=== PATIENT | female | born 2000 | race Caucasian/White ===

== ENCOUNTER 2020-10-18 21:36 | Emergency (ER) | payer OTHER ==
[2020-10-18 22:29] VITALS: BP 105/72; PULSE 82; TEMP 98.7; BMI 22.6
[2020-10-19] MEDS ORDERED: ACETAMINOPHEN 1000 MG/100 ML VIAL (NON FORMULARY) IVPB ONE (00:24)
[2020-10-19] MEDS ORDERED: SODIUM CHLORIDE 1,000 ML IV STA (00:24)
[2020-10-19 01:03] LABS: HCG,QUALITATIVE URINE Negative
[2020-10-19 01:06] LABS: URINE APPEARANCE CLEAR; URINE BILIRUBIN NEGATIVE (NEGATIVE); URINE COLOR YELLOW; URINE GLUCOSE (UA) NEGATIVE (NEGATIVE); URINE KETONE NEGATIVE (NEGATIVE); URINE LEUK ESTERASE NEGATIVE (NEGATIVE); URINE NITRITE NEGATIVE (NEGATIVE); URINE PROTEIN NEGATIVE (NEGATIVE); URINE UROBILINOGEN 0.2 mg/dL (0.2-1.0)
[2020-10-19] MEDS ORDERED: ACETAMINOPHEN INJECTION 100 ML IVPB ONE (01:12)
[2020-10-19 01:19] LABS: BASO % 0.4 % (0-2.0); EOS % 0.9 % (0-4.5); HEMATOCRIT 37.8 % (32.4-45.2); HEMOGLOBIN 12.5 GM/dL (10.7-15.3); LYMPH % 15.1 % (8-40); MCHC 33.1 g/dl (32.0-36.0); MEAN CELL VOLUME 87.4 fl (80-96); MEAN PLT VOLUME 9.3 fl (7.5-11.1); MONO % 7.5 % (3.8-10.2); NEUT % 76.1 % (42.8-82.8); PLATELET COUNT 317 K/MM3 (134-434); RBC 4.33 M/mm3 (3.60-5.2); RDW 16.1 % (11.6-15.6); WHITE BLOOD COUNT 10.4 K/mm3 (4.0-10.0)
[2020-10-19] MEDS ORDERED: KETOROLAC TROMETHAMINE 30 MG/1 ML VIAL IVPUSH ONE (01:23)
[2020-10-19] MEDS ORDERED: TAMSULOSIN HCL 0.4 MG CAP PO ONE (01:23)
[2020-10-19] MEDS ORDERED: TAMSULOSIN HCL 0.4 MG CAP ONE (01:29)
[2020-10-19] MEDS ORDERED: KETOROLAC TROMETHAMINE 30 MG/1 ML VIAL ONE (01:29)
[2020-10-19 01:38] LABS: ALBUMIN 4.2 g/dl (3.4-5.0); BLOOD UREA NITROGEN 16.5 mg/dL (7-18); CALCIUM 8.9 mg/dL (8.5-10.1)
[2020-10-19 01:42] LABS: CREATININE 0.8 mg/dL (0.55-1.3)
[2020-10-19 01:43] LABS: BILIRUBIN,TOTAL 0.2 mg/dL (0.2-1); TOT PROT 8.3 g/dl (6.4-8.2)
== END 2020-10-19 03:10 | disposition home or self-care (01) ==
LOC: JER 21:36
PROC: 3E0333Z Introduction of Anti-inflammatory into Peripheral Vein, Percutaneous Approach (ICD-10-PCS; principal; 2020-10-18)
PROC: 3E0333Z Introduction of Anti-inflammatory into Peripheral Vein, Percutaneous Approach (ICD-10-PCS; 2020-10-18)
PROC: 3E0337Z Introduction of Electrolytic and Water Balance Substance into Peripheral Vein, Percutaneous Approach (ICD-10-PCS; 2020-10-18)
DX: R10.32 Left lower quadrant pain (principal); N13.30 Unspecified hydronephrosis
CPT/HCPCS: 36415; 74176-TC; 76775-TC; 80053; 81003; 84703; 85025; 87086; 99285-25; J0131

== ENCOUNTER 2023-10-15 15:19 | Emergency (ER) | payer SELFPAY ==
[2023-10-15 15:27] VITALS: RESP 18; TEMP 97.8; BMI 24.1
[2023-10-15 16:44] LABS: BASO % 0.4 % (0-2.0); EOS % 0.8 % (0-4.5); HEMATOCRIT 38.9 % (32.4-45.2); LYMPH % 13.4 % (8-40); MCH 29.2 pg (25.7-33.7); MCHC 33.3 g/dl (32.0-36.0); MEAN CELL VOLUME 87.6 fl (80-96); MEAN PLT VOLUME 8.6 fl (7.5-11.1); MONO % 2.6 % (3.8-10.2); NEUT % 82.8 % (42.8-82.8); PLATELET COUNT 317 10^3/uL (134-434); RBC 4.44 M/mm3 (3.60-5.2); RDW 14.7 % (11.6-15.6); WHITE BLOOD COUNT 9.5 K/mm3 (4.0-10.0)
[2023-10-15] MEDS ORDERED: ACETAMINOPHEN INJECTION 100 ML IVPB ONE (16:53)
[2023-10-15] MEDS ORDERED: ONDANSETRON 4 MG/2 ML VIAL ONE (16:53)
[2023-10-15] MEDS ORDERED: FAMOTIDINE 20 MG/50 ML IVPB 20 MG/50 ML MG IVPB ONE (16:53)
[2023-10-15] MEDS: ACETAMINOPHEN 1000 MG/100 ML BAG IVPB ONE (17:03)
[2023-10-15] MEDS: FAMOTIDINE 20 MG/50 ML IVPB 20 MG/50 ML MG IVPB ONE (17:03)
[2023-10-15] MEDS: ONDANSETRON 4 MG/2 ML VIAL IVPUSH ONE (17:03)
[2023-10-15] MEDS: SODIUM CHLORIDE 1,000 ML IV STA (17:03)
[2023-10-15 17:04] LABS: POTASSIUM 4.2 mmol/L (3.5-5.1)
[2023-10-15 17:06] LABS: ALBUMIN 3.7 g/dl (3.4-5.0); CALCIUM 9.4 mg/dL (8.5-10.1)
[2023-10-15 17:07] LABS: BLOOD UREA NITROGEN 14.3 mg/dL (7-18)
[2023-10-15 17:10] LABS: CREATININE 0.7 mg/dL (0.55-1.3)
[2023-10-15 17:11] LABS: BILIRUBIN,TOTAL 0.3 mg/dL (0.2-1); TOT PROT 7.9 g/dl (6.4-8.2)
[2023-10-15 18:21] LABS: PH,URINE 6.5 (5.0-8.0); URINE APPEARANCE CLEAR; URINE BILIRUBIN NEGATIVE (NEGATIVE); URINE COLOR YELLOW; URINE GLUCOSE (UA) NEGATIVE (NEGATIVE); URINE KETONE 2+ (NEGATIVE); URINE LEUK ESTERASE NEGATIVE (NEGATIVE); URINE NITRITE NEGATIVE (NEGATIVE); URINE PROTEIN NEGATIVE (NEGATIVE); URINE UROBILINOGEN 0.2 mg/dL (0.2-1.0)
[2023-10-15] MEDS ORDERED: KETOROLAC TROMETHAMINE 30 MG/1 ML VIAL ONE (20:23)
[2023-10-15] MEDS: KETOROLAC TROMETHAMINE 30 MG/1 ML VIAL IVPUSH ONE (20:28)
[2023-10-15] MEDS: LACTATED RINGERS SOLUTION 1,000 ML/1,000 ML INFUS.BAG IV ONE (20:28)
[2023-10-15 22:15] VITALS: BP 110/72; PULSE 67
== END 2023-10-15 22:15 | disposition home or self-care (01) ==
LOC: JER 15:19
PROC: 3E033GC Introduction of Other Therapeutic Substance into Peripheral Vein, Percutaneous Approach (ICD-10-PCS; principal; 2023-10-15)
PROC: 3E033GC Introduction of Other Therapeutic Substance into Peripheral Vein, Percutaneous Approach (ICD-10-PCS; 2023-10-15)
PROC: 3E033NZ Introduction of Analgesics, Hypnotics, Sedatives into Peripheral Vein, Percutaneous Approach (ICD-10-PCS; 2023-10-15)
PROC: 3E0333Z Introduction of Anti-inflammatory into Peripheral Vein, Percutaneous Approach (ICD-10-PCS; 2023-10-15)
PROC: 3E0337Z Introduction of Electrolytic and Water Balance Substance into Peripheral Vein, Percutaneous Approach (ICD-10-PCS; 2023-10-15)
DX: R10.13 Epigastric pain (principal); M54.6 Pain in thoracic spine; R11.2 Nausea with vomiting, unspecified; K29.70 Gastritis, unspecified, without bleeding; K57.90 Diverticulosis of intestine, part unspecified, without perforation or abscess without bleeding
CPT/HCPCS: 36415; 74177-TC; 80053; 81003; 84703; 85025; 87077; 87086; 99285-25; J0131; Q9967

== ENCOUNTER 2023-10-18 17:55 | Emergency (ER) | payer OTHER ==
[2023-10-18 18:01] VITALS: RESP 18; BMI 24.0
[2023-10-18] MEDS ORDERED: diphenhydrAMINE HCL 25 MG CAPSULE (FP) PO ONE (19:19)
[2023-10-18] MEDS ORDERED: MAG HYDROX/AL HYDROX/SIMETH 30 ML UNIT-DOSE CUP ONE (19:20)
[2023-10-18] MEDS: diphenhydrAMINE HCL 12.5 MG/5 ML UNIT-DOSE CUPS PO ONE (19:25)
[2023-10-18] MEDS: MAG HYDROX/AL HYDROX/SIMETH 30 ML UNIT-DOSE CUP PO ONE (19:25)
[2023-10-18] MEDS ORDERED: LIDOCAINE VISCOUS 2% ORAL/TOP 15 ML UNIT-DOSE CUP ONE (19:30)
[2023-10-18] MEDS: LIDOCAINE VISCOUS 2% ORAL/TOP 15 ML UNIT-DOSE CUP MM ONE (19:45)
[2023-10-18] MEDS ORDERED: PANTOPRAZOLE SODIUM 40 MG/100 ML BAG IVPB ONE (20:17)
[2023-10-18] MEDS ORDERED: ONDANSETRON 4 MG/2 ML VIAL ONE ×2 (20:17→23:17)
[2023-10-18] MEDS: SODIUM CHLORIDE 0.9% 500 ML INFUS.BAG IV ONE (20:32)
[2023-10-18] MEDS: ONDANSETRON 4 MG/2 ML VIAL IVPUSH ONE ×2 (20:32→23:28)
[2023-10-18] MEDS: PANTOPRAZOLE SODIUM 40 MG VIAL IVPUSH ONE (20:32)
[2023-10-18 21:57] LABS: BASO % 0.3 % (0-2.0); EOS % 0.3 % (0-4.5); HEMOGLOBIN 12.8 GM/dL (10.7-15.3); LYMPH % 15.7 % (8-40); MCH 28.8 pg (25.7-33.7); MCHC 32.8 g/dl (32.0-36.0); MEAN CELL VOLUME 87.6 fl (80-96); MEAN PLT VOLUME 8.3 fl (7.5-11.1); MONO % 4.5 % (3.8-10.2); NEUT % 79.2 % (42.8-82.8); PLATELET COUNT 325 10^3/uL (134-434); RBC 4.45 M/mm3 (3.60-5.2); RDW 14.5 % (11.6-15.6)
[2023-10-18 23:05] LABS: POTASSIUM 4.1 mmol/L (3.5-5.1)
[2023-10-18 23:07] LABS: ALBUMIN 3.4 g/dl (3.4-5.0); CALCIUM 8.9 mg/dL (8.5-10.1)
[2023-10-18 23:08] LABS: BLOOD UREA NITROGEN 9.3 mg/dL (7-18)
[2023-10-18 23:10] LABS: CREATININE 0.7 mg/dL (0.55-1.3)
[2023-10-18 23:12] LABS: BILIRUBIN,TOTAL 0.5 mg/dL (0.2-1); TOT PROT 7.2 g/dl (6.4-8.2)
[2023-10-18] MEDS ORDERED: ACETAMINOPHEN INJECTION 100 ML IVPB ONE (23:17)
[2023-10-18] MEDS: ACETAMINOPHEN 1000 MG/100 ML BAG IVPB ONE (23:28)
[2023-10-19 01:54] VITALS: BP 102/60; PULSE 73; TEMP 98.6
== END 2023-10-19 03:22 | disposition home or self-care (01) ==
LOC: JER 17:55
PROC: 3E030NZ Introduction of Analgesics, Hypnotics, Sedatives into Peripheral Vein, Open Approach (ICD-10-PCS; principal; 2023-10-18)
PROC: 3E030GC Introduction of Other Therapeutic Substance into Peripheral Vein, Open Approach (ICD-10-PCS; 2023-10-18)
PROC: 3E030GC Introduction of Other Therapeutic Substance into Peripheral Vein, Open Approach (ICD-10-PCS; 2023-10-18)
PROC: 3E030GC Introduction of Other Therapeutic Substance into Peripheral Vein, Open Approach (ICD-10-PCS; 2023-10-18)
DX: K80.20 Calculus of gallbladder without cholecystitis without obstruction (principal); N13.30 Unspecified hydronephrosis; R11.2 Nausea with vomiting, unspecified; R10.12 Left upper quadrant pain; R10.13 Epigastric pain
CPT/HCPCS: 36415; 76705-TC; 80053; 83690; 85025; 99284-25; J0131

== ENCOUNTER 2024-11-02 09:39 | Day surgery (SDC) | payer OTHER ==
[2024-11-02] MEDS ORDERED: FAMOTIDINE 20 MG/50 ML IVPB 20 MG/50 ML MG IVPB ONE (11:43)
[2024-11-02] MEDS ORDERED: ONDANSETRON 4 MG/2 ML VIAL ONE (11:43)
[2024-11-02] MEDS: ACETAMINOPHEN 1000 MG/100 ML BAG IVPB ONE (11:59)
[2024-11-02] MEDS: ONDANSETRON 4 MG/2 ML VIAL IVPUSH ONE (11:59)
[2024-11-02 12:16] LABS: INR 1.06 (0.83-1.09); PROTHROMBIN TIME (PATIENT) 11.6 SEC (9.7-13.0)
[2024-11-02 12:19] LABS: ACTIVATED PTT 32.7 SECONDS (25.2-36.5)
[2024-11-02 12:20] LABS: HCG,QUALITATIVE URINE Negative
[2024-11-02 12:23] LABS: PH,URINE >= 9.0 (5.0-8.0); URINE APPEARANCE CLEAR; URINE BILIRUBIN NEGATIVE (NEGATIVE); URINE COLOR YELLOW; URINE GLUCOSE (UA) NEGATIVE (NEGATIVE); URINE KETONE NEGATIVE (NEGATIVE); URINE LEUK ESTERASE NEGATIVE (NEGATIVE); URINE NITRITE NEGATIVE (NEGATIVE); URINE PROTEIN NEGATIVE (NEGATIVE); URINE UROBILINOGEN 0.2 mg/dL (0.2-1.0)
[2024-11-02 12:26] LABS: POTASSIUM 4.7 mmol/L (3.5-5.1)
[2024-11-02 12:28] LABS: CALCIUM 9.8 mg/dL (8.5-10.1)
[2024-11-02 12:29] LABS: BLOOD UREA NITROGEN 13.7 mg/dL (7-18); MAGNESIUM 2.1 mg/dL (1.8-2.4)
[2024-11-02 12:32] LABS: CREATININE 0.7 mg/dL (0.55-1.3)
[2024-11-02 12:33] LABS: BILIRUBIN,TOTAL 0.4 mg/dL (0.2-1); TOT PROT 8.2 g/dl (6.4-8.2)
[2024-11-02] MEDS: LACTATED RINGERS SOLUTION 1000 ML INFUS.BAG IV ONE (12:48)
[2024-11-02] MEDS: FAMOTIDINE 20 MG/50 ML IVPB 20 MG/50 ML MG IVPB ONE (12:56)
[2024-11-02 13:18] LABS: HCV DIAGNOSTIC IN-HOUSE W/RFLX NON-REACTIVE (NONREACTIVE)
[2024-11-02 13:19] LABS: HIV INTERPRETATION NEGATIVE (NEGATIVE)
[2024-11-02 13:37] LABS: ABSOLUTE IMMATURE GRANULOCYTES 0.01 x10^3/uL (0.0-0.031); BASOPHILS # 0.06 x10^3/uL (0.01-0.08); EOSINOPHIL % 4.8 % (0.7-5.8); EOSINOPHILS # 0.33 x10^3/uL (0.04-0.36); HEMATOCRIT 39.1 % (34.1-44.9); HEMOGLOBIN 12.9 g/dL (11.2-15.7); MEAN CELL VOLUME 89.7 fl (79.4-94.8); MEAN PLT VOLUME 11.5 fl (9.4-12.3); MONOCYTE # 0.58 x10^3/uL (0.24-0.86); MONOCYTE % 8.5 % (4.7-12.5); PLATELET COUNT 317 x10^3/uL (182-369); RDW 13.2 % (12.1-16.5)
[2024-11-02] MEDS ORDERED: ONDANSETRON 4 MG/2 ML VIAL IVPUSH PRN (14:10)
[2024-11-02] MEDS ORDERED: ALBUTEROL SO4 HFA INHALER IH PRN (14:25)
[2024-11-02] MEDS ORDERED: MORPHINE SULFATE 2 MG/ML SYRINGE ONE ×2 (14:28→16:06)
[2024-11-02] MEDS ORDERED: PIPERACILLIN/TAZOB 4.5 GM 4.5 GM/100 ML BAG IVPB ONE (14:28)
[2024-11-02] MEDS: morphine CARPU-JECT 2 MG/1 ML DISP.SYRIN IVPUSH ONE (14:34)
[2024-11-02] MEDS: PIPERACILLIN/TAZOB 4.5 GM 4.5 GM in DEXTROSE 5%-WATER 100 ML IVPB ONE (14:34)
[2024-11-02] MEDS: LACTATED RINGERS SOLUTION 1,000 ML/1,000 ML INFUS.BAG IV SCH (14:35)
[2024-11-02 18:28] VITALS: BMI 22.6
[2024-11-02] MEDS: ACETAMINOPHEN 1000 MG/100 ML BAG IVPB PRN (19:27)
[2024-11-03 08:54] LABS: HEMATOCRIT 35.4 % (34.1-44.9); HEMOGLOBIN 11.2 g/dL (11.2-15.7); MCHC 31.6 g/dl (32.2-35.5); MEAN CELL VOLUME 91.7 fl (79.4-94.8); MEAN PLT VOLUME 10.4 fl (9.4-12.3); PLATELET COUNT 269 x10^3/uL (182-369); RDW 13.3 % (12.1-16.5)
[2024-11-03 09:26] LABS: BLOOD UREA NITROGEN 6.8 mg/dL (7-18); CALCIUM 8.9 mg/dL (8.5-10.1); MAGNESIUM 1.9 mg/dL (1.8-2.4)
[2024-11-03 09:30] LABS: BILIRUBIN,TOTAL 0.3 mg/dL (0.2-1); CREATININE 0.7 mg/dL (0.55-1.3); PHOSPHOROUS 4.2 mg/dL (2.5-4.9)
[2024-11-03 09:43] LABS: ALBUMIN 3.1 g/dl (3.4-5.0); TOT PROT 5.9 g/dl (6.4-8.2)
[2024-11-03] MEDS ORDERED: PROMETHAZINE HCL 25 MG/1 ML VIAL IVPB PRN ×2 (10:18→12:57)
[2024-11-03] MEDS ORDERED: oxyCODONE HCL 5 MG TABLET PO PRN ×3 (10:18→12:57)
[2024-11-03] MEDS ORDERED: LACTATED RINGERS SOLUTION 1,000 ML IV SCH (10:30)
[2024-11-03] MEDS ORDERED: ROCURONIUM BROMIDE 50 MG/5 ML SYRINGE ONE (10:36)
[2024-11-03] MEDS ORDERED: DEXAMETHASONE SOD PHOSPHATE 4 MG/1 ML VIAL ONE (10:36)
[2024-11-03] MEDS ORDERED: SEVOFLURANE 250 ML BTL ONE (10:36)
[2024-11-03] MEDS ORDERED: ONDANSETRON 4 MG/2 ML VIAL ONE (10:36)
[2024-11-03] MEDS ORDERED: MIDAZOLAM HCL 2 MG/2 ML SINGLE DOSE VIAL ONE (10:36)
[2024-11-03] MEDS ORDERED: PROPOFOL 20 ML ONE (10:36)
[2024-11-03] MEDS ORDERED: BUPIVACAINE HCL/PF 0.25% (2.5MG/ML) 10 ML VIAL ONE (10:38)
[2024-11-03] MEDS ORDERED: LIDOCAINE HCL/PF 2% SDV 5ML VIAL ONE (10:42)
[2024-11-03] MEDS ORDERED: cefOXitin SODIUM 2 GM VIAL (RESTRICTED TO ID) IVPB ONE (11:06)
[2024-11-03] MEDS: cefoTEtan DISODIUM 2 GM VIAL (RESTRICTED TO ID) IVPB ONE (11:18)
[2024-11-03] MEDS ORDERED: NEOSTIGMINE METHYLSULFATE 0.5 MG/1 ML - 10 ML MDV ONE (12:11)
[2024-11-03] MEDS ORDERED: KETOROLAC TROMETHAMINE 30 MG/1 ML VIAL ONE (12:11)
[2024-11-03] MEDS ORDERED: GLYCOPYRROLATE 0.2 MG/1 ML VIAL ONE (12:11)
[2024-11-03] MEDS ORDERED: ALBUTEROL SO4 HFA INHALER IH PRN (12:57)
[2024-11-03] MEDS ORDERED: ONDANSETRON 4 MG/2 ML VIAL IVPUSH PRN (12:57)
[2024-11-03] MEDS ORDERED: LACTATED RINGERS SOLUTION 1,000 ML/1,000 ML INFUS.BAG IV SCH (12:57)
[2024-11-03] MEDS ORDERED: ACETAMINOPHEN INJECTION 100 ML ONE (13:33)
[2024-11-03] MEDS: LACTATED RINGERS SOLUTION 1,000 ML IV SCH (13:39)
[2024-11-03] MEDS: ACETAMINOPHEN 1000 MG/100 ML BAG IVPB PRN (13:40)
[2024-11-03] MEDS: ACETAMINOPHEN INJECTION 100 ML ONE (13:40)
[2024-11-03] MEDS ORDERED: ACETAMINOPHEN 1000 MG/100 ML BAG IVPB PRN (14:47)
[2024-11-03] MEDS: oxyCODONE HCL 5 MG TABLET PO PRN (15:07)
[2024-11-04 01:38] VITALS: RESP 18
[2024-11-04 08:35] LABS: HEMATOCRIT 33.9 % (34.1-44.9); MCHC 32.4 g/dl (32.2-35.5); MEAN CELL VOLUME 90.2 fl (79.4-94.8); MEAN PLT VOLUME 10.1 fl (9.4-12.3); PLATELET COUNT 259 x10^3/uL (182-369); RDW 12.9 % (12.1-16.5)
[2024-11-04 08:58] LABS: POTASSIUM 3.8 mmol/L (3.5-5.1)
[2024-11-04 09:04] LABS: BLOOD UREA NITROGEN 10.2 mg/dL (7-18)
[2024-11-04 09:07] LABS: CREATININE 0.7 mg/dL (0.55-1.3)
[2024-11-04 15:18] VITALS: BP 109/69; PULSE 79; TEMP 98.8
== END 2024-11-04 18:28 | disposition home or self-care (01) ==
LOC: JER 09:39 → JERBED 14:06 → INTOOBSV 14:06 → UNDOADMOB 14:06 → JERBED 16:56 → J6S 16:56 → JASUSAT 11-03 13:42
PROVIDERS: ATTEND Internal Medicine
PROC: 3E03329 Introduction of Other Anti-infective into Peripheral Vein, Percutaneous Approach (ICD-10-PCS; principal; 2024-11-02)
PROC: 3E033GC Introduction of Other Therapeutic Substance into Peripheral Vein, Percutaneous Approach (ICD-10-PCS; 2024-11-02)
PROC: 3E033GC Introduction of Other Therapeutic Substance into Peripheral Vein, Percutaneous Approach (ICD-10-PCS; 2024-11-02)
PROC: 3E033NZ Introduction of Analgesics, Hypnotics, Sedatives into Peripheral Vein, Percutaneous Approach (ICD-10-PCS; 2024-11-02)
DX: K80.20 Calculus of gallbladder without cholecystitis without obstruction (principal); R10.11 Right upper quadrant pain; R10.13 Epigastric pain; R11.2 Nausea with vomiting, unspecified
CPT/HCPCS: 36415; 76705-TC; 80048; 80053; 81003; 83690; 83735; 84100; 84703; 85025; 85027; 85610; 85730; 86803; 86850; 86900; 86901; 87389; 88304-TC; 94760; 99285-25; J0131